=== PATIENT | male | born 1980 | race Two or more races ===

== ENCOUNTER 2019-10-12 22:16 | Emergency (ER) | payer MEDICAID, OTHER ==
[~2019-10-12] VITALS: Ht 175.3 cm; Wt 123.2 kg
[2019-10-12 22:26] VITALS: BP 126/67
--- NOTE | 2019-10-12 23:08 | NUR ---
PT CALLED FROM LOBBY TO ROOM AT THIS TIME. PT AMBULATES TO ROOM WITH STEADY GAIT. PT PROVIDED WITH GOWN AND ASKED TO CHANGE AT THIS TIME.
[2019-10-12 23:17] LABS: BASOPHILS # (AUTO) 0.04 x10^3/uL (0-0.1); BASOPHILS % (AUTO) 1 % (0-1); EOSINOPHILS # (AUTO) 0.39 x10^3/uL (0-0.4); EOSINOPHILS % (AUTO) 6 % (1-7); LYMPHOCYTES # (AUTO) 2.01 x10^3/uL (1-3.4); LYMPHOCYTES % (AUTO) 29 % (22-44); MD NO; MEAN CORPUSCULAR HEMOGLOBIN 32.5 pg (27.5-34.5); MEAN CORPUSCULAR VOLUME 98.5 fL (81-97); MEAN PLATELET VOLUME 8.6 fL (7.4-10.4); MONOCYTES # (AUTO) 0.55 x10^3/uL (0.2-0.8); MONOCYTES % (AUTO) 8 % (2-9); NEUTROPHILS # (AUTO) 3.93 x10^3/uL (1.8-6.8); NEUTROPHILS % (AUTO) 57 % (42-75); PLATELET COUNT 221 x10^3/uL (130-400); RED BLOOD COUNT 4.54 x10^6/uL (4.38-5.82); RED CELL DISTRIBUTION WIDTH 13.7 % (9.4-14.8)
[2019-10-12 23:26] LABS: ALBUMIN 3.3 g/dL (3.4-5.0); ANION GAP 3 mmol/L (5-15); CALCIUM 8.5 mg/dL (8.5-10.1); CHLORIDE 109 mmol/L (98-107); CREATININE 1.27 mg/dL (0.7-1.3)
--- NOTE | 2019-10-12 23:34 | NUR ---
PROVIDER TUNG CARTWRIGHT AT BS FOR PT HISTORY AND ASSESSMENT.
[2019-10-12] MEDS ORDERED: IBUPROFEN 600 MG TABLET ONE (23:46)
--- NOTE | 2019-10-12 23:52 | NUR ---
PT MEDICATED PER MAR.
[2019-10-13] MEDS ORDERED: IBUPROFEN 200 MG TABLET PO ONE
[2019-10-13 00:21] LABS: RAPID INFLUENZA A Negative (Negative); RAPID INFLUENZA B Negative (Negative)
--- NOTE | 2019-10-13 01:13 | NUR ---
PT D/C WITH D/C SUMMARY AND SCRIPTS. ALL QUESTIONS ANSWERED. PT AMBULATES TO REGISTRATION DESK WITH STEADY GAIT FOR D/C HOME AND DENIES ANY OTHER NEEDS PERTAINING TO THIS VISIT.
== END 2019-10-13 01:16 | disposition home or self-care (01) ==
LOC: ED 23:59
DX: R42 Dizziness and giddiness (principal); H69.92 Unspecified Eustachian tube disorder, left ear; J00 Acute nasopharyngitis [common cold]; B34.9 Viral infection, unspecified; Z72.9 Problem related to lifestyle, unspecified; F17.200 Nicotine dependence, unspecified, uncomplicated
CPT/HCPCS: 36415; 80048; 82040; 85025; 87400; 93005; 99284